=== PATIENT | male | born 1955 | race Caucasian/White ===

== ENCOUNTER 2021-09-06 01:38 | Inpatient (IN) | payer MEDICARE, MEDICAID ==
[~2021-09-06] VITALS: Ht 177.8 cm; Wt 136.0 kg
[~2021-09-06 01:38] MED LIST: ACET-2119 PO; ACET650S13 RC; ALBU2.5V10 NEB; ASCO500C17 PO; ASPI-1265 PO; BACL-11 PO; BISA10SU60 PR; CHOL20004 PO; DIVA-76 PO; DIVA125T31 PO; DOCU-148 PO; FAMO20TA8 PO; FURO80TA87 PO; GABA-530 PO; INSU100I31 SQ; INSU100V11 SQ; LACT1CAP57 PO; LORA-268 PO; MAG355OR18 PO; MAGN400O6 PO; MELA5TAB12 PO; METO50TA16 PO; MULT-620 PO; NYSPWD TP; OXYC-150 PO; POLY17PO10 PO; POTA40LI16 PO; RIVA15TA PO; SENN-263 PO; SERT100T PO
[2021-09-06] MEDS ORDERED: piperacillin/tazo 4.5gm/100ml 100 ML IV SCH (03:22)
[2021-09-06 03:55] LABS: ALANINE AMINOTRANSFERASE 17 U/L (12-78); ALBUMIN 2.5 G/DL (3.4-5.0); ALBUMIN/GLOBULIN RATIO 0.7 (1.1-1.5); ALKALINE PHOSPHATASE 51 IU/L (46-116); ANION GAP 5 (8-16); ASPARTATE AMINO TRANSFERASE 18 U/L (10-37); BILIRUBIN,TOTAL 0.3 MG/DL (0.1-1.0); BLOOD UREA NITROGEN 64 MG/DL (7-18); BUN/CREATININE RATIO 34.2 (5.4-32.0); CALCIUM 8.1 MG/DL (8.5-10.1); CHLORIDE 97 MMOL/L (99-107); CREATININE 1.87 MG/DL (0.60-1.10); GLUCOSE 171 MG/DL (70-104); POTASSIUM 4.6 MMOL/L (3.5-5.1); SODIUM 133 MMOL/L (135-145); TOTAL CARBON DIOXIDE 30.9 MMOL/L (24-32); TOTAL PROTEIN 6.3 G/DL (6.4-8.2); eGFR 37 ML/MIN
[2021-09-06 03:57] LABS: BASOPHILS % (AUTO) 0.4 % (0-1); EOSINOPHILS % (AUTO) 0.2 % (0-6); HEMATOCRIT 32.5 % (42.0-52.0); HEMOGLOBIN 10.7 g/dl (14.0-17.9); LYMPHOCYTES # (AUTO) 1.7 X10'3 (1.1-4.8); LYMPHOCYTES % (AUTO) 16.8 % (21-51); MEAN CORPUSCULAR VOLUME 84.9 FL (78-98); MONOCYTES # (AUTO) 0.8 X10'3 (0-0.9); MONOCYTES % (AUTO) 7.4 % (2-12); NEUTROPHILS # (AUTO) 7.8 X10'3 (1.8-7.7); NEUTROPHILS % (AUTO) 75.2 % (42-75); PLATELET COUNT 128 X10'3 (140-440); RED BLOOD COUNT 3.82 X10'6 (4.70-6.10); RED CELL DISTRIBUTION WIDTH 16.8 % (11.5-14.5); WHITE BLOOD COUNT 10.4 X10'3 (4.5-11.0)
[2021-09-06 03:59] LABS: BILIRUBIN,DIRECT 0.1 MG/DL (0-0.3); LIPASE < 50 U/L (73-393)
[2021-09-06] MEDS ORDERED: acetaminophen 325mg tablet PO PRN ×2 (06:10)
[2021-09-06] MEDS ORDERED: HYDROcodone/acetaminophen 5mg/325mg tablet PO PRN (06:10)
[2021-09-06] MEDS ORDERED: magnesium hydroxide 30ml (MOM) UD suspension PO PRN (06:10)
[2021-09-06] MEDS ORDERED: diphenhydrAMINE 25mg capsule PO PRN (06:10)
[2021-09-06] MEDS ORDERED: acetaminophen 650mg rectal suppository RC PRN (06:10)
[2021-09-06] MEDS ORDERED: diphenhydrAMINE 50 mg/ml inj IV PRN (06:10)
[2021-09-06] MEDS ORDERED: ondansetron/PF 4mg/2ml inj IV PRN (06:10)
[2021-09-06] MEDS ORDERED: bisacodyl 10mg suppository rectal RC PRN (06:10)
[2021-09-06] MEDS ORDERED: ondansetron 4mg rapidly disintigrating tab PO PRN (06:10)
[2021-09-06] MEDS ORDERED: mag hydrox/Alum hydrox/simeth 30ml oral suspension PO PRN (06:10)
[2021-09-06] MEDS ORDERED: morphine 2 MG/ML inj. syringe IV PRN (06:10)
[2021-09-06] MEDS ORDERED: dextrose 50%-water 50ml dispensing syringe IV PRN ×2 (06:15)
[2021-09-06] MEDS ORDERED: dextrose ORAL solution 15 GM/59 ML bottle PO PRN ×2 (06:15)
[2021-09-06] MEDS ORDERED: insulin Lispro (HumaLOG) vial - multi-dose SQ SCH (06:15)
[2021-09-06] MEDS ORDERED: glucagon, human recombinant 1mg kit SUBCUT PRN (06:15)
[2021-09-06] MEDS ORDERED: MESSAGE TO PHARMACY PO ONE (06:15)
[2021-09-06] MEDS: normal saline 1000ml 1,000 ML IV SCH ×2 (06:34→16:40)
[2021-09-06 06:51] LABS: MAGNESIUM 2.1 MG/DL (1.5-2.4); PHOSPHORUS 3.7 MG/DL (2.3-4.5)
[2021-09-06 07:10] LABS: D-DIMER 0.22 MG/L FEU (0-0.50); PARTIAL THROMBOPLASTIN TIME 38 SECONDS (22-32)
[2021-09-06] MEDS: ipratropium/albuterol 3ml nebule NEB SCH ×4 (07:10→20:27)
[2021-09-06 07:20] LABS: CLARITY,URINE CLOUDY (Clear); COLOR,URINE YELLOW (Yellow); GLUCOSE, URINE NEGATIVE (Neg); KETONES,URINE NEGATIVE (Neg); LEUKOCYTE ESTERASE ,URINE MODERATE (Neg); NITRITES, URINE NEGATIVE (Neg); OCCULT BLOOD,URINE MODERATE (Neg); PROTEIN,URINE TRACE mg/dl (Neg); UA COLLECTION TYPE FOLEY CATH; UROBILINOGEN,URINE 0.2 E.U/dL (0.2-1.0)
[2021-09-06 07:23] LABS: BACTERIA,URINE 4+ /HPF (Neg); MUCUS STRANDS NONE SEEN /LPF (Neg); RENAL CELLS, URINE FEW /HPF; SQUAMOUS EPITHELIAL CELL,UR NONE SEEN /LPF (FEW); WBC CLUMPS,URINE MANY /HPF (NEGATIVE); WBC,URINE TNTC /HPF (0-4)
[2021-09-06] MEDS: heparin, porcine 5000 units/ml vial SQ SCH ×2 (07:57→16:46)
[2021-09-06] MEDS: pantoprazole 40 MG vial IV SCH (07:57)
[2021-09-06] MEDS: docusate sod 100mg capsule PO SCH ×3 (07:57→19:34)
[2021-09-06] MEDS ORDERED: azithromycin/NS 500mg/250ml 250 ML IV SCH (08:00)
[2021-09-06] MEDS ORDERED: CefTRIAXone/D5W-Rocephin 1gm 50 ML IV SCH (08:00)
[2021-09-06] MEDS ORDERED: methylPREDNISolone sod succ 125mg/2ml vial IV SCH (08:00)
--- NOTE | 2021-09-06 09:31 | NUR ---
SPOKE PRASAD CARRANZA RN AT [facility] ([phone]). STATES PT IS BED BOUND WITH [facility] TRANSFER. 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 PT HAS A COGNITIVE DELAY WITH OUTBURSTS OF YELLING AND HITTING AND GETS PRN ATIVAN TO HELP. PT NORMALLY ON 2 L N/C BUT PULLS OFF ROUTINELY. PT ALSO HAS HISTORY OF PULLING OUT F/C (LAST PULLED OUT 08/08/21, PT HAD ROUTINE MONTHLY CHANGE OF F/C ON 09/03/21.
--- NOTE | 2021-09-06 10:36 | NUR ---
PT SPO2 DOWN TO 84% ON 16L N/C. EDUCATED PT ON EEP BREATH, PT ABLE TO COUGH ON COMMAND. INCREASED HOB WITH NO IMPROVEMENT. PAGED RT
[2021-09-06] MEDS ORDERED: ASPI-611 PO (12:14)
[2021-09-06] MEDS ORDERED: GABA300C PO (12:18)
[2021-09-06] MEDS ORDERED: BACL-11 PO (12:18)
[2021-09-06] MEDS ORDERED: DOCU-148 PO (12:18)
[2021-09-06] MEDS ORDERED: FAMO20TA8 PO (12:18)
[2021-09-06] MEDS ORDERED: DIVA125C2 PO (12:18)
[2021-09-06] MEDS ORDERED: LORA-269 PO (12:18)
[2021-09-06] MEDS ORDERED: MULT-1085 PO (12:19)
[2021-09-06] MEDS ORDERED: INSU100V11 SQ (12:22)
[2021-09-06] MEDS ORDERED: INSU100V9 SQ (12:22)
[2021-09-06] MEDS ORDERED: POLY17PO10 PO (12:27)
[2021-09-06] MEDS ORDERED: MELA5TAB12 PO (12:27)
[2021-09-06] MEDS ORDERED: OXYC-150 PO (12:27)
[2021-09-06] MEDS ORDERED: PRED10TA23 PO (12:27)
[2021-09-06] MEDS ORDERED: FURO-149 PO (12:27)
[2021-09-06] MEDS ORDERED: POTA-207 PO (12:27)
[2021-09-06] MEDS ORDERED: LOP12.5T PO (12:27)
[2021-09-06] MEDS ORDERED: CHOL100025 PO (12:30)
[2021-09-06] MEDS ORDERED: RIVA15TA PO (12:30)
[2021-09-06] MEDS ORDERED: SERT-153 PO (12:30)
[2021-09-06] MEDS ORDERED: SENN-263 PO (12:30)
[2021-09-06] MEDS ORDERED: ASCO-10 PO (12:30)
[2021-09-06] MEDS ORDERED: baclofen 10mg tablet PO PRN (12:55)
[2021-09-06] MEDS ORDERED: LORazepam 1 MG tablet PO PRN (12:55)
[2021-09-06] MEDS: oxyCODONE/APAP 10/325mg tablet PO SCH ×2 (14:00→19:35)
[2021-09-06] MEDS: methylPREDNISolone sod succ 125mg/2ml vial IV SCH ×2 (14:24→20:05)
[2021-09-06 16:24] LABS: ABG BASE EXCESS 2.1 mmol/L (-2.0-2.0); ABG HCO3 27.1 mmol/L (22.0-26.0); ABG OXYGEN SATURATION 95.8 % (94-97); ABG PCO2 (T) 45.1 mmHg (35.0-48.0); ABG PO2 (T) 89.2 mmHg (75.0-100.0); ALLEN'S TEST POSITIVE; FCOHb 0.3 % (0.0-3.9); FLOW 20 L/min; FMetHb 0.1 % (0.0-1.5); FO2Hb 95.4 % (94-97); PATIENT TEMPERATURE 37.7; TOTAL HEMOGLOBIN 11.2 G/dl (14.0-18.0)
[2021-09-06] MEDS: rivaroxaban 15mg tablet PO SCH (18:00)
[2021-09-06] MEDS: levoFLOXACIN-Levaquin 250mg/D5 50 ML IV SCH (18:57)
[2021-09-06] MEDS: lactobacillus rhamnosus 10,000 MMU CELLS/CAPSULE PO SCH (19:34)
[2021-09-06] MEDS: metoprolol tartrate 50mg tablet PO SCH (19:35)
[2021-09-06] MEDS: sennosides 8.6mg tablet PO SCH (19:35)
[2021-09-06] MEDS: divalproex sod 125mg sprinkle cap PO SCH (19:35)
[2021-09-06] MEDS: gabapentin 300mg capsule PO SCH (19:35)
[2021-09-06] MEDS: [UNRECOGNIZED DRUG - OTHER] PO SCH (19:36)
[2021-09-06] MEDS: piperacillin/tazo 3.375gm/50ml 50 ML IV SCH (20:05)
[2021-09-06] MEDS: insulin glargine (Lantus) pen - multi-dose SQ SCH (20:32)
[2021-09-06] MEDS ORDERED: INSULIN GLARGINE HUM REC ANLOG 7 UNIT SQ SCH (21:00)
[2021-09-06] MEDS ORDERED: temazepam 15mg capsule PO PRN (21:00)
[2021-09-06 22:00] VITALS: BP 121/63
[2021-09-07] MEDS: heparin, porcine 5000 units/ml vial SQ SCH ×3 (01:32→16:54)
[2021-09-07] MEDS: piperacillin/tazo 3.375gm/50ml 50 ML IV SCH ×3 (01:34→16:54)
[2021-09-07] MEDS: methylPREDNISolone sod succ 125mg/2ml vial IV SCH ×4 (01:45→19:26)
[2021-09-07] MEDS: oxyCODONE/APAP 10/325mg tablet PO SCH ×4 (01:59→19:37)
[2021-09-07 02:00] VITALS: BP 105/61
[2021-09-07] MEDS: normal saline 1000ml 1,000 ML IV SCH ×3 (02:02→21:56)
[2021-09-07] MEDS: ipratropium/albuterol 3ml nebule NEB SCH ×6 (03:22→23:00)
--- NOTE | 2021-09-07 04:55 | NUR ---
Patient at ER for worsening altered level of consciousness, as well as SOB. Patient maintained on 02 with 15L nonrebreather. Tolerated and patient in the 95 percent and above through the night. Patient slept all night, and was unable to be administered Percocet PO as he would not be woken. Maintained on ABT Zosyn and Vanco. Presently does not appear to be in respiratory or physical distress.
[2021-09-07] MEDS: vancomycin/NS 1 GM ADD-VANTAGE 250 ML IV SCH ×2 (05:04→19:18)
[2021-09-07] MEDS: divalproex sod 125mg sprinkle cap PO SCH ×2 (08:00→19:37)
[2021-09-07] MEDS: docusate sod 100mg capsule PO SCH ×4 (08:00→19:36)
[2021-09-07] MEDS: levoFLOXACIN-Levaquin 250mg/D5 50 ML IV SCH (09:06)
[2021-09-07] MEDS: pantoprazole 40 MG vial IV SCH (09:06)
[2021-09-07 11:10] LABS: BASOPHILS % (AUTO) 0.1 % (0-1); EOSINOPHILS % (AUTO) 0 % (0-6); HEMATOCRIT 30.5 % (42.0-52.0); HEMOGLOBIN 10.2 g/dl (14.0-17.9); LYMPHOCYTES # (AUTO) 0.3 X10'3 (1.1-4.8); LYMPHOCYTES % (AUTO) 5.8 % (21-51); MEAN CORPUSCULAR HGB CONC 33.4 g/dL (33.0-36.5); MEAN CORPUSCULAR VOLUME 83.7 FL (78-98); MEAN PLATELET VOLUME 8.1 FL (7.4-10.4); MONOCYTES # (AUTO) 0.1 X10'3 (0-0.9); MONOCYTES % (AUTO) 2.4 % (2-12); NEUTROPHILS # (AUTO) 4.6 X10'3 (1.8-7.7); NEUTROPHILS % (AUTO) 91.7 % (42-75); PLATELET COUNT 123 X10'3 (140-440); RED BLOOD COUNT 3.64 X10'6 (4.70-6.10); RED CELL DISTRIBUTION WIDTH 16.6 % (11.5-14.5)
[2021-09-07 11:33] LABS: ALANINE AMINOTRANSFERASE 16 U/L (12-78); ALBUMIN 2.5 G/DL (3.4-5.0); ALBUMIN/GLOBULIN RATIO 0.6 (1.1-1.5); ALKALINE PHOSPHATASE 44 IU/L (46-116); ANION GAP 9 (8-16); ASPARTATE AMINO TRANSFERASE 12 U/L (10-37); BILIRUBIN,TOTAL 0.3 MG/DL (0.1-1.0); BLOOD UREA NITROGEN 64 MG/DL (7-18); BUN/CREATININE RATIO 48.1 (5.4-32.0); CALCIUM 8.4 MG/DL (8.5-10.1); CHLORIDE 102 MMOL/L (99-107); CHOLESTEROL 177 MG/DL (0-200); CREATININE 1.33 MG/DL (0.60-1.10); GLUCOSE 208 MG/DL (70-104); POTASSIUM 4.1 MMOL/L (3.5-5.1); SODIUM 140 MMOL/L (135-145); TOTAL CARBON DIOXIDE 29.4 MMOL/L (24-32); TOTAL PROTEIN 6.7 G/DL (6.4-8.2); eGFR 54 ML/MIN
[2021-09-07 11:34] LABS: CHOL/HDL RATIO 4.3 (0.00-4.99); HDL CHOLESTEROL 41 MG/DL (35-60); LDL CHOLESTEROL 97 MG/DL (50-100); TRIGLYCERIDES 117 MG/DL (20-135)
--- NOTE | 2021-09-07 14:28 | NUR ---
PATIENT ASKING FOR FOOD. WEANING TO NC AT 6L/MIN. PAGE TO DR. CAMERON FOR DIET ORDER. PAGER ID: [phone] MESSAGE: ER BED 15 [place]. PATIENT REQUESTING TO EAT, BUT NO DIET ORDER FOR PATIENT. HE IS TOLERATING BEING WEANED FROM NRB MASK TO NASAL CANNULA AT 6L/MIN, SO HE FEELS THAT HE IS READY TO EAT. THANK YOU, CRISTIN [phone]
[2021-09-07] MEDS ORDERED: dextrose ORAL solution 15 GM/59 ML bottle PO PRN ×2 (14:40)
[2021-09-07] MEDS ORDERED: dextrose 50%-water 50ml dispensing syringe IV PRN ×2 (14:40)
[2021-09-07] MEDS ORDERED: MESSAGE TO PHARMACY PO ONE (14:40)
[2021-09-07] MEDS ORDERED: glucagon, human recombinant 1mg kit SUBCUT PRN (14:40)
[2021-09-07] MEDS ORDERED: insulin Lispro (HumaLOG) vial - multi-dose SQ SCH (14:40)
[2021-09-07] MEDS: potassium Cl 20 mEq SR tablet PO SCH (14:57)
[2021-09-07] MEDS: metoprolol tartrate 50mg tablet PO SCH ×2 (14:58→19:27)
[2021-09-07] MEDS: sertraline 50mg tablet PO SCH (14:59)
[2021-09-07] MEDS: multivitamins, therapeutics tablet PO SCH (14:59)
[2021-09-07] MEDS: famotidine 20mg tablet PO SCH (14:59)
[2021-09-07] MEDS: predniSONE 20 mg tablet PO SCH (14:59)
[2021-09-07] MEDS: furosemide 40mg tablet PO SCH (15:00)
--- NOTE | 2021-09-07 15:00 | NUR ---
PATIENT'S MOTHER AND SISTER ARE HERE TO VISIT. PATIENT ALERT AND TALKATIVE. EASILY TOOK MEDICATIONS WITH WATER AND RETAINED. PATIENT HAS ROOM ASSIGNMENT AND WAS NOTIFIED THAT HE WOULD BE GOING TO HIS INPATIENT ROOM SOON.
[2021-09-07] MEDS: lactobacillus rhamnosus 10,000 MMU CELLS/CAPSULE PO SCH ×2 (15:03→19:26)
[2021-09-07] MEDS: aspirin 81mg, enteric-coated 1 TAB TABLET.DR PO SCH (15:03)
[2021-09-07] MEDS: sennosides 8.6mg tablet PO SCH ×2 (15:03→19:26)
[2021-09-07] MEDS: polyethylene glycol 3350 17gm powd pack PO SCH (15:04)
--- NOTE | 2021-09-07 15:31 | NUR ---
PATIENT ASSIGNED TO ROOM 3014A. ATTEMPT TO CALL REPORT TO FLOOR. IRON NUÑEZ WILL CALL BACK WHEN ABLE.
--- NOTE | 2021-09-07 15:50 | NUR ---
Received report from Rhonda PERDUE. Had opportunity to ask questions concerning Pt's care and plan. Awaiting arrival of Pt to room 3013T.
[2021-09-07 18:00] VITALS: BP 139/68
--- NOTE | 2021-09-07 18:16 | NUR ---
Problems reprioritized. Patient report given, questions answered & plan of care reviewed with Prudence RN.
--- NOTE | 2021-09-07 18:29 | NUR ---
Patient in room PCU 3014. I have received report from SAVANNAH PERDUE and had the opportunity to ask questions and assume patient care.
[2021-09-07] MEDS: rivaroxaban 15mg tablet PO SCH (18:39)
[2021-09-07] MEDS: [UNRECOGNIZED DRUG - OTHER] PO SCH (21:00)
[2021-09-07] MEDS ORDERED: insulin glargine (Lantus) pen - multi-dose SQ SCH (21:00)
[2021-09-07] MEDS: gabapentin 300mg capsule PO SCH (21:46)
[2021-09-07] MEDS: insulin glargine (Lantus) pen - multi-dose SQ SCH (21:54)
[2021-09-07 22:00] VITALS: BP 134/59
[2021-09-07] MEDS: morphine 2 MG/ML inj. syringe IV PRN (22:44)
[2021-09-08] MEDS: heparin, porcine 5000 units/ml vial SQ SCH ×2 (00:26→08:34)
[2021-09-08] MEDS: piperacillin/tazo 3.375gm/50ml 50 ML IV SCH (00:26)
[2021-09-08 02:00] VITALS: BP 129/63
[2021-09-08] MEDS: oxyCODONE/APAP 10/325mg tablet PO SCH ×2 (02:36→08:13)
[2021-09-08] MEDS: methylPREDNISolone sod succ 125mg/2ml vial IV SCH ×2 (02:36→08:31)
[2021-09-08] MEDS: ipratropium/albuterol 3ml nebule NEB SCH ×3 (03:00→10:28)
[2021-09-08] MEDS ORDERED: VANCOMYCIN LEVEL IV ONE (04:30)
[2021-09-08] MEDS: vancomycin/NS 1 GM ADD-VANTAGE 250 ML IV SCH (05:29)
--- NOTE | 2021-09-08 06:28 | NUR ---
Problems reprioritized. Patient report given, questions answered & plan of care reviewed with MONICO PERDUE.
[2021-09-08 06:34] LABS: BASOPHILS % (AUTO) 0.1 % (0-1); EOSINOPHILS % (AUTO) 0 % (0-6); HEMATOCRIT 30.1 % (42.0-52.0); HEMOGLOBIN 9.9 g/dl (14.0-17.9); LYMPHOCYTES # (AUTO) 0.3 X10'3 (1.1-4.8); LYMPHOCYTES % (AUTO) 9.1 % (21-51); MEAN CORPUSCULAR HEMOGLOBIN 27.9 PG (27.0-31.0); MEAN CORPUSCULAR VOLUME 84.5 FL (78-98); MEAN PLATELET VOLUME 8.1 FL (7.4-10.4); MONOCYTES # (AUTO) 0.1 X10'3 (0-0.9); MONOCYTES % (AUTO) 2.6 % (2-12); NEUTROPHILS # (AUTO) 3.3 X10'3 (1.8-7.7); NEUTROPHILS % (AUTO) 88.2 % (42-75); PLATELET COUNT 129 X10'3 (140-440); RED BLOOD COUNT 3.56 X10'6 (4.70-6.10); RED CELL DISTRIBUTION WIDTH 16.6 % (11.5-14.5); WHITE BLOOD COUNT 3.8 X10'3 (4.5-11.0)
--- NOTE | 2021-09-08 06:40 | NUR ---
Patient in room PCU 3014B. I have received report from IRON PERSAUD and had the opportunity to ask questions and assume patient care.
[2021-09-08 06:42] LABS: ALANINE AMINOTRANSFERASE 15 U/L (12-78); ALBUMIN 2.5 G/DL (3.4-5.0); ALBUMIN/GLOBULIN RATIO 0.7 (1.1-1.5); ALKALINE PHOSPHATASE 41 IU/L (46-116); ANION GAP 7 (8-16); ASPARTATE AMINO TRANSFERASE 13 U/L (10-37); BILIRUBIN,TOTAL 0.3 MG/DL (0.1-1.0); BLOOD UREA NITROGEN 69 MG/DL (7-18); BUN/CREATININE RATIO 53.1 (5.4-32.0); CALCIUM 8.2 MG/DL (8.5-10.1); CHLORIDE 107 MMOL/L (99-107); GLUCOSE 191 MG/DL (70-104); POTASSIUM 4.6 MMOL/L (3.5-5.1); SODIUM 143 MMOL/L (135-145); TOTAL CARBON DIOXIDE 28.7 MMOL/L (24-32); TOTAL PROTEIN 6.3 G/DL (6.4-8.2); eGFR 56 ML/MIN
[2021-09-08 06:46] LABS: VANCOMYCIN,TROUGH 24.4 UG/ML (6.0-14.0)
--- NOTE | 2021-09-08 06:56 | NUR ---
CRITICAL VANCO 24.4. CALLED PHARMACIST HE'LL REDUCE DOSE. CALL DR CHOI ORDERED INFUSION TO BE STOPPED AND A VANCO TROUGH TO BE REDONE LATER IN THE DAY.
[2021-09-08 07:00] VITALS: BP 167/60
[2021-09-08] MEDS ORDERED: pantoprazole 40mg Tablet.DR PO SCH (07:30)
[2021-09-08] MEDS: metoprolol tartrate 50mg tablet PO SCH (08:00)
[2021-09-08] MEDS: docusate sod 100mg capsule PO SCH ×2 (08:00→08:13)
[2021-09-08] MEDS: polyethylene glycol 3350 17gm powd pack PO SCH (08:07)
[2021-09-08] MEDS: normal saline 1000ml 1,000 ML IV SCH (08:10)
[2021-09-08] MEDS: potassium Cl 20 mEq SR tablet PO SCH (08:12)
[2021-09-08] MEDS: famotidine 20mg tablet PO SCH (08:12)
[2021-09-08] MEDS: aspirin 81mg, enteric-coated 1 TAB TABLET.DR PO SCH (08:20)
[2021-09-08] MEDS: furosemide 40mg tablet PO SCH (08:20)
[2021-09-08] MEDS: predniSONE 20 mg tablet PO SCH (08:21)
[2021-09-08] MEDS: multivitamins, therapeutics tablet PO SCH (08:21)
[2021-09-08] MEDS: sertraline 50mg tablet PO SCH (08:21)
[2021-09-08] MEDS: sennosides 8.6mg tablet PO SCH (08:24)
[2021-09-08] MEDS: levoFLOXACIN-Levaquin 250mg/D5 50 ML IV SCH (08:34)
--- NOTE | 2021-09-08 09:22 | NUR ---
Ander Consult: Per note, pt w/ BLE stasis dermatitis, pt also noted w/ IAD on sacrum, no open wounds documented. Will continue to monitor. Addendum: 09/08/21 at [address] Amended: Links added.
[2021-09-08 11:00] VITALS: BP 130/56
[2021-09-08] MEDS: morphine 2 MG/ML inj. syringe IV PRN (11:00)
[2021-09-08] MEDS ORDERED: CEFD300C3 PO (11:36)
[2021-09-08] MEDS ORDERED: LEVO500T90 PO (11:36)
--- NOTE | 2021-09-08 14:55 | NUR ---
PATIENT STABLE AND APPROPRIATE FOR TRANSFER, IV TAKEN OUT, TELE REMOVED, REPORT CALLED INTO IRON [place] AT [facility], PATIENT HAD NO BELONGINGS, PATIENT TAKEN TO [facility] BY [facility]
[2021-09-08] MEDS ORDERED: VANCOMYCIN 750MG IV in NS 250 ML IV SCH (17:00)
[2021-09-10] MEDS ORDERED: VANCOMYCIN LEVEL IV ONE (04:30)
[2021-09-20] MEDS ORDERED: ASPI-1265 PO (11:16)
[2021-09-20] MEDS ORDERED: MULT-1074 PO (11:19)
[2021-09-20] MEDS ORDERED: SERT-434 PO (11:19)
== END 2021-09-08 14:55 | DRG 189 ==
LOC: ER 01:39 → ED HOLD 06:13 → PCU 3S 09-07 16:26
PROVIDERS: ADMIT Family Medicine; ATTEND Family Medicine
DX: J96.01 Acute respiratory failure with hypoxia (principal); J18.9 Pneumonia, unspecified organism; I50.23 Acute on chronic systolic (congestive) heart failure; G93.41 Metabolic encephalopathy; I13.0 Hypertensive heart and chronic kidney disease with heart failure and stage 1 through stage 4 chronic kidney disease, or unspecified chronic kidney disease; J44.0 Chronic obstructive pulmonary disease with (acute) lower respiratory infection; J44.1 Chronic obstructive pulmonary disease with (acute) exacerbation; N17.9 Acute kidney failure, unspecified; L97.919 Non-pressure chronic ulcer of unspecified part of right lower leg with unspecified severity; L97.929 Non-pressure chronic ulcer of unspecified part of left lower leg with unspecified severity; Z68.41 Body mass index [BMI] 40.0-44.9, adult; E11.621 Type 2 diabetes mellitus with foot ulcer; F32.A Depression, unspecified; Z20.822 Contact with and (suspected) exposure to COVID-19; D69.6 Thrombocytopenia, unspecified; E11.22 Type 2 diabetes mellitus with diabetic chronic kidney disease; E11.65 Type 2 diabetes mellitus with hyperglycemia; E66.01 Morbid (severe) obesity due to excess calories; E86.1 Hypovolemia; I87.2 Venous insufficiency (chronic) (peripheral); I87.8 Other specified disorders of veins; L30.9 Dermatitis, unspecified; N18.30 Chronic kidney disease, stage 3 unspecified; Z66 Do not resuscitate; Z86.73 Personal history of transient ischemic attack (TIA), and cerebral infarction without residual deficits; Z88.8 Allergy status to other drugs, medicaments and biological substances; Z79.01 Long term (current) use of anticoagulants
CPT/HCPCS: 36415; 36600; 70450; 71045; 80048; 80053; 80061; 80076; 80202; 81001; 82803; 82948; 83036; 83605; 83690; 83735; 83880; 84100; 84443; 84484; 85018; 85025; 85379; 85610; 85730; 87040; 87081; 87635; 93306; 94640; 94760; 99285; C9113; C9803; G0378; J0456; J0696; J1644; J1815; J1956; J2270; J2543; J2930; J3370; J7030; J7512